=== PATIENT | female | born 1985 | race Caucasian/White ===

== ENCOUNTER 2017-07-10 11:49 | Emergency (ER) | payer OTHER ==
[~2017-07-10] VITALS: Ht 160 cm; Wt 47.2 kg
[2017-07-10 13:01] LABS: APPEARANCE,URINE CLEAR; BILIRUBIN, URINE NEGATIVE (NEGATIVE); COLOR,URINE PALE YELLOW; GLUCOSE, URINE (UA) NEGATIVE (NEGATIVE); KETONES,URINE NEGATIVE (NEGATIVE); LEUKOCYTE ESTERASE ,URINE NEGATIVE (NEGATIVE); NITRITE,URINE NEGATIVE (NEGATIVE); PH,URINE 6 (4.5-8.0); PROTEIN,URINE NEGATIVE (NEGATIVE); UROBILINOGEN,URINE NORMAL MG/DL (0.0-1.0)
[2017-07-10 13:14] LABS: ANION GAP 10 mmol/L (5-15); BLOOD UREA NITROGEN 7 mg/dL (7-18); CALCIUM 9.5 MG/DL (8.5-10.1); CARBON DIOXIDE 24 MMOL/L (21-32); CHLORIDE 104 MMOL/L (98-107); CREATININE 0.6 MG/DL (0.55-1.30); POTASSIUM 4.3 MMOL/L (3.5-5.1); SODIUM 138 MMOL/L (136-145)
[2017-07-10 13:31] LABS: ALANINE AMINOTRANSFERASE 13 U/L (12-78); ALBUMIN 4.3 G/DL (3.4-5.0); ALKALINE PHOSPHATASE 67 U/L (46-116); ASPARTATE AMINO TRANSFERASE 32 U/L (15-37); BILIRUBIN,TOTAL 0.5 MG/DL (0.2-1.0)
[2017-07-10 13:33] LABS: EOSINOPHILS % (AUTO) 0.1 % (0.0-3.0); HEMATOCRIT 37.6 % (37.0-47.0); LYMPHOCYTES % (AUTO) 12.4 % (20.0-45.0); MEAN CORPUSCULAR VOLUME 91 FL (80-99); MONOCYTES % (AUTO) 4.1 % (1.0-10.0); NEUTROPHILS % (AUTO) 82.4 % (45.0-75.0); PLATELET COUNT 218 K/UL (150-450); RED BLOOD COUNT 4.12 M/UL (4.20-5.40); RED CELL DISTRIBUTION WIDTH 10.3 % (11.6-14.8); WHITE BLOOD COUNT 6.5 K/UL (4.8-10.8)
--- NOTE | 2017-07-10 14:31 | Diagnostic Imaging Report ---
EXAM: CT Head Without Intravenous Contrast CLINICAL HISTORY: PAIN TECHNIQUE: Axial computed tomography images of the head/brain without intravenous contrast. CTDI is 70.38 + .15 mGy and DLP is 1304 mGy-cm. One or more of the following dose reduction techniques were used: automated exposure control, adjustment of the mA and/or kV according to patient size, use of iterative reconstruction technique. COMPARISON: No relevant prior studies available. FINDINGS: Brain: No hemorrhage. No edema. Ventricles: No ventriculomegaly. Bones/joints: No acute fracture. Soft tissues: Unremarkable. Sinuses: No acute sinusitis. Mastoid air cells: No mastoid effusion. IMPRESSION: No acute intracranial process.
[2017-07-10] MEDS ORDERED: TEGRETOL200 MG PO (14:52)
[2017-07-10 15:11] VITALS: BP 113/72
--- NOTE | 2017-07-11 07:48 | Emergency Room Report ---
History of Present Illness General Chief Complaint: Headache Source: Patient Present Illness HPI Patient is a 31-year-old female who presented after gradual onset of headache. Patient reports having a recent visit to her doctor for similar symptoms. Patient stated that she had not had previous imaging for her head. Patient reports having a gradual onset headache which was described as a burning sensation to the top of the head and the back of the neck. It having some increased burning sensation both hands. The patient previously been prescribed gabapentin without any improvement. Allergies: Coded Allergies: BISMUTH SUBSALICYLATE (Unverified Allergy, Unknown, 07/10/17) Uncoded Allergies: PEPTO BISMOL (Allergy, Unknown, 07/10/17) Pt acquires rashes. Patient History Past Medical History: see triage record Reviewed Nursing Documentation: PMH: Agreed; PSxH: Agreed Nursing Documentation-PMH Past Medical History: No History, Except For Review of Systems All Other Systems: negative except mentioned in HPI Physical Exam Vital Signs Date Time Temp Pulse Resp B/P (MAP) Pulse Ox O2 Delivery O2 Flow Rate FiO2 07/10/17 11:55 98.5 108 20 113/72 97 Room Air 98.4 Sp02 EP Interpretation: reviewed, normal General Appearance: normal inspection, well appearing, no apparent distress, alert, GCS 15 Head: atraumatic ENT: normal ENT inspection, hearing grossly normal, normal voice Neck: normal inspection, full range of motion, supple, no meningismus, no bony tend Respiratory: normal inspection, lungs clear, normal breath sounds, no respiratory distress, no retraction, no wheezing Cardiovascular #1: normal inspection, regular rate, rhythm, no edema Gastrointestinal: normal inspection, normal bowel sounds, non tender, soft, no guarding, no hernia Genitourinary: no CVA tenderness Musculoskeletal: normal inspection, back normal, normal range of motion Neurologic: normal inspection, alert, oriented x3, responsive, wall and floor tiler III-XII nml as tested, motor strength/tone normal, DTRs symmetric, cerebellar normal, normal gait, speech normal, no pronator Psychiatric: normal inspection, judgement/insight normal, mood/affect normal Reflexes: 2+ bicep (R), 2+ bicep (L); 3+ knee (R), 3+ knee (L) Skin: normal inspection, normal color, no rash Medical Decision Making Diagnostic Impression: Primary Impression: Headache ER Course Patient presented for headache. Differential diagnoses included but was not limited to multiple sclerosis, neuropathy, skull fracture, subarachnoid hemorrhage, meningitis, aneurysm, mass lesion, intracranial hemorrhage. Because of complexity of patient's case laboratory testing and imaging studies were ordered. The laboratory testing was unremarkable test was negative. Patient was given IV magnesium. The CT imaging of the head read by radiology showed no evidence of acute hemorrhage or CVA. The patient was given prescription for medication for headache. The patient is advised outpatient neurology follow-up for further evaluation of abnormal sensation. The patient is advised follow-up with her primary care physician for neurology referral.The patient is advised to follow up with primary care doctor in 1-2 days. Patient is advised to return if any worsening condition or if any changes in status that are concerning. This report is dictated with [email or web address] supervisor engine assembly software which may occasionally lead to discrepancies related to use of this software. Labs Test 07/10/17 12:36 07/10/17 13:00 Urine Color Pale yellow Urine Appearance Clear Urine pH 6 (4.5-8.0) Urine Specific [place] 1.010 (1.005-1.035) Urine Protein Negative (NEGATIVE) Urine Glucose (UA) Negative (NEGATIVE) Urine Ketones Negative (NEGATIVE) Urine Occult Blood 1+ (NEGATIVE) Urine Nitrite Negative (NEGATIVE) Urine Bilirubin Negative (NEGATIVE) Urine Urobilinogen Normal MG/DL (0.0-1.0) Urine Leukocyte Esterase Negative (NEGATIVE) Urine RBC 0-2 /HPF (0 - 2) Urine WBC 0-2 /HPF (0 - 2) Urine Squamous Epithelial Cells Few /LPF (NONE/OCC) Urine Bacteria Few /HPF (NONE) Urine HCG, Qualitative Negative (NEGATIVE) Sodium Level 138 MMOL/L (136-145) Potassium Level 4.3 MMOL/L (3.5-5.1) Chloride Level 104 MMOL/L (98-107) Carbon Dioxide Level 24 MMOL/L (21-32) Anion Gap 10 mmol/L (5-15) Blood Urea Nitrogen 7 mg/dL (7-18) Creatinine 0.6 MG/DL (0.55-1.30) Estimat Glomerular Filtration Rate > 60 mL/min (>60) Glucose Level 98 MG/DL (74-106) Calcium Level 9.5 MG/DL (8.5-10.1) Total Bilirubin 0.5 MG/DL (0.2-1.0) Aspartate Amino Transf (AST/SGOT) 32 U/L (15-37) Alanine Aminotransferase (ALT/SGPT) 13 U/L (12-78) Alkaline Phosphatase 67 U/L (46-116) Total Protein 8.5 G/DL (6.4-8.2) Albumin 4.3 G/DL (3.4-5.0) Globulin 4.2 g/dL Albumin/Globulin Ratio 1.0 (1.0-2.7) Thyroid Stimulating Hormone (TSH) 1.543 uiU/mL (0.358-3.740) Urine Opiates Screen Negative (NEGATIVE) Urine Barbiturates Screen Negative (NEGATIVE) Phencyclidine (PCP) Screen Negative (NEGATIVE) Urine Amphetamines Screen Negative (NEGATIVE) Urine Benzodiazepines Screen Negative (NEGATIVE) Urine Cocaine Screen Negative (NEGATIVE) Urine Marijuana (THC) Screen Negative (NEGATIVE) White Blood Count 6.5 K/UL (4.8-10.8) Red Blood Count 4.12 M/UL (4.20-5.40) Hemoglobin 13.0 G/DL (12.0-16.0) Hematocrit 37.6 % (37.0-47.0) Mean Corpuscular Volume 91 FL (80-99) Mean Corpuscular Hemoglobin 31.5 PG (27.0-31.0) Mean Corpuscular Hemoglobin Concent 34.5 G/DL (32.0-36.0) Red Cell Distribution Width 10.3 % (11.6-14.8) Platelet Count 218 K/UL (150-450) Mean Platelet Volume 7.1 FL (6.5-10.1) Neutrophils (%) (Auto) 82.4 % (45.0-75.0) Lymphocytes (%) (Auto) 12.4 % (20.0-45.0) Monocytes (%) (Auto) 4.1 % (1.0-10.0) Eosinophils (%) (Auto) 0.1 % (0.0-3.0) Basophils (%) (Auto) 1.0 % (0.0-2.0) Erythrocyte Sedimentation Rate 19 MM/HR (0-20) Last Vital Signs Date Time Temp Pulse Resp B/P (MAP) Pulse Ox O2 Delivery O2 Flow Rate FiO2 07/10/17 15:11 98.5 20 113/72 97 Room Air 98.4 07/10/17 11:55 108 Status: improved Disposition: HOME, SELF-CARE Condition: Stable Scripts Carbamazepine (TEGRETOL*) 200 Mg Tablet 200 MG PO Q12HR, #10 TAB 0 Refills Prov: Ronald Servin MD 07/10/17 Referrals: NISA REVELES,REFERRING (PCP) Patient Instructions: General Headache Without Cause Ronald Servin MD Jul 11, 2017 07:48
== END 2017-07-10 15:12 | disposition home or self-care (01) ==
LOC: EMR 12:05
DX: R51 Headache (principal); Z88.8 Allergy status to other drugs, medicaments and biological substances
CPT/HCPCS: 36415; 70450; 80053; 80307; 81003; 81025; 84443; 85025; 85651; 96360; 96374; 99283

== ENCOUNTER 2017-11-12 15:21 | Emergency (ER) | payer OTHER ==
[~2017-11-12] VITALS: Ht 160 cm; Wt 47.2 kg
[~2017-11-12 15:21] MED LIST: TEGRETOL200 MG PO
[2017-11-12 15:46] VITALS: BP 104/74
[2017-11-12] MEDS ORDERED: LORazepam 0.5mg tab ORAL ONE (16:00)
--- NOTE | 2017-11-12 16:01 | Emergency Room Report ---
History of Present Illness General Chief Complaint: General Complaint Source: Patient, Medical Record Present Illness HPI 32 yo female presents to the ED c/o panic attacks and that current medication is making her anxiety worse. Pt. is currently on her second week of taking Buspar. pt. previously had previous trials on zoloft and prozac both of which gave pt. Headaches after increasing to therapeutic levels. pt. denies PSA , previous psychiatric hospitalizations, TBI or traumatic event. Pt. denies hallucinations, delusions, or depression. pt. describes feeling on edge all the time and intermittently having episodes of hyperventilation, palpitations and paresthesias in bilateral hands, arms, feet, and around mouth. Pt denies previous hx of anxiety before initial onset 4 months ago. Pt. has appt. on the of this month with her psych. that was the soonest available appt. Denies CP, SOB, dyspnea, LOC, or presyncope. Pt. denies pain or . Allergies: Coded Allergies: BISMUTH SUBSALICYLATE (Unverified Allergy, Unknown, 11/12/17) Uncoded Allergies: PEPTO BISMOL (Allergy, Unknown, 07/10/17) Pt acquires rashes. Patient History Past Medical History: none Past Surgical History: none Pertinent Family History: none Last Menstrual Period: Oct 24, 2017 Now: No Nursing Documentation-PMH Past Medical History: No History, Except For Review of Systems All Other Systems: negative except mentioned in HPI Physical Exam Vital Signs Date Time Temp Pulse Resp B/P (MAP) Pulse Ox O2 Delivery O2 Flow Rate FiO2 11/12/17 15:31 98.7 89 16 104/74 97 Room Air 98.8 Sp02 EP Interpretation: reviewed, normal General Appearance: no apparent distress, alert, GCS 15, non-toxic Head: normocephalic, atraumatic Eyes: bilateral eye normal inspection, bilateral eye PERRL ENT: hearing grossly normal, normal voice Neck: full range of motion Respiratory: lungs clear, normal breath sounds, no respiratory distress, no accessory muscle use, no wheezing, speaking full sentences Cardiovascular #1: regular rate, rhythm Musculoskeletal: back normal, gait/station normal, normal range of motion, non- tender Neurologic: alert, oriented x3, responsive, motor strength/tone normal, sensory intact, normal gait, speech normal, grossly normal Psychiatric: judgement/insight normal, memory normal, no suicidal/homicidal ideation, no delusions, anxious Skin: normal color, no rash, warm/dry, well hydrated Medical Decision Making PA Attestation Dr. carver is my supervising Physician whom patient management has been discussed with. Diagnostic Impression: Primary Impression: Generalized anxiety disorder with panic attacks ER Course 32 yo female presents to the ED c/o panic attacks and that current medication is making her anxiety worse. Pt. is currently on her second week of taking Buspar. pt. previously had previous trials on zoloft and prozac both of which gave pt. Headaches after increasing to therapeutic levels. pt. denies PSA , previous psychiatric hospitalizations, TBI or traumatic event. Pt. denies hallucinations, delusions, or depression. pt. describes feeling on edge all the time and intermittently having episodes of hyperventilation, palpitations and paresthesias in bilateral hands, arms, feet, and around mouth. Pt denies previous hx of anxiety before initial onset 4 months ago. Pt. has appt. on the of this month with her psych. that was the soonest available appt. Denies CP, SOB, dyspnea, LOC, or presyncope. Pt. denies pain. Denies rashes. Ddx considered but are not limited to anxiety, [place], PE, asthma, thyroid storm, hyperthyroid, EPS, medication SE Vital signs: are WNL, pt. is afebrile H&PE are most consistent with anxiety attack, possible medication SE, as buspar is known to on occasion cause worsening of anxiety symptoms in select population. ORDERS: none required at this time, the diagnosis is clinical ED INTERVENTIONS: - 0.5 mg Ativan d/w pt. Medications and possible SE's. DISCHARGE: At this time pt. is stable for d/c to home. Will provide printed patient care instructions, and any necessary prescriptions. Care plan and follow up instructions have been discussed with the patient prior to discharge. Last Vital Signs Date Time Temp Pulse Resp B/P (MAP) Pulse Ox O2 Delivery O2 Flow Rate FiO2 11/12/17 15:46 98.8 89 16 104/74 97 Room Air 98.8 Status: improved Disposition: HOME, SELF-CARE Condition: Stable Scripts Lorazepam* (ATIVAN*) 0.5 Mg Tablet 0.5 MG ORAL TID PRN for For Anxiety, #5 TAB Prov: Helena Santana 11/12/17 Escitalopram Oxalate (LEXAPRO) 5 Mg Tablet 5 MG ORAL DAILY for 14 Days, #20 TAB may increase to 10mg daily after 1 week of use. Prov: Helena Santana 11/12/17 Patient Instructions: Panic Attacks, [id number] Additional Instructions: Take medications as directed. Follow up with a Primary Care Provider or your psychiatrist in 3-5 days, even if your symptoms have resolved. --Please review list of primary care clinics, if you do not already have a primary care provider Return sooner to ED if new symptoms occur, or current symptoms become worse. - Please note that this Emergency Department Report was dictated using [employer] lamp shades technology software, occasionally this can lead to erroneous entry secondary to interpretation by the dictation equipment. Helena Santana Nov 12, 2017 16:01
[2017-11-12] MEDS ORDERED: LEXAPRO5 MG ORAL (16:08)
[2017-11-12] MEDS ORDERED: ATIVAN0.5 MG ORAL (16:08)
[2017-11-12 16:13] VITALS: BP 104/74
== END 2017-11-12 16:13 | disposition home or self-care (01) ==
LOC: EMR 16:06
DX: F41.1 Generalized anxiety disorder (principal); F41.0 Panic disorder [episodic paroxysmal anxiety]
CPT/HCPCS: 99283

== ENCOUNTER 2017-12-07 14:14 | Emergency (ER) | payer OTHER ==
[~2017-12-07] VITALS: Ht 160 cm; Wt 47.2 kg
[~2017-12-07 14:14] MED LIST changes: +ATIVAN0.5 MG ORAL; +LEXAPRO5 MG ORAL
[2017-12-07 14:37] VITALS: BP 137/68
[2017-12-07] MEDS ORDERED: LORazepam 0.5mg tab ORAL ONE (14:45)
--- NOTE | 2017-12-07 15:02 | Emergency Room Report ---
History of Present Illness General Chief Complaint: General Complaint Source: Patient Present Illness HPI 32-year-old female patient presents ER complaining of anxiety with past 4 days. P Patient reports that she is being seen by psychiatrist, states next appointment is scheduled for tomorrow. Patient denies thoughts of hurting herself or others. Patient denies chest pain, shortness of breath, abdominal pain, fever. Denies recent injury or trauma. Reports took Ativan 0.5mg few hours ago and it did not help symptoms. Denies drinking drugs or alcohol. Denies other acute symptoms. patient denies recent injury or trauma. Reports only taking BuSpar. Reports has follow-up with her therapist next week, states therapist comes her home weekly to discuss symptoms. ports history of anxiety since she was 14 years old. This was seen in ER for similar symptoms. Allergies: Coded Allergies: BISMUTH SUBSALICYLATE (Unverified Allergy, Unknown, 11/12/17) Uncoded Allergies: PEPTO BISMOL (Allergy, Unknown, 07/10/17) Pt acquires rashes. Patient History Past Medical History: see triage record Now: No Reviewed Nursing Documentation: PMH: Agreed; PSxH: Agreed Nursing Documentation-PMH Past Medical History: No History, Except For Review of Systems All Other Systems: negative except mentioned in HPI Physical Exam Vital Signs Date Time Temp Pulse Resp B/P (MAP) Pulse Ox O2 Delivery O2 Flow Rate FiO2 12/07/17 14:16 98.2 109 24 137/68 99 Room Air Sp02 EP Interpretation: reviewed, normal General Appearance: well appearing, no apparent distress, alert, GCS 15, non- toxic Head: normocephalic, atraumatic Eyes: bilateral eye normal inspection, bilateral eye PERRL ENT: hearing grossly normal, normal pharynx, no angioedema, normal voice, uvula midline, moist mucus membranes Neck: full range of motion Respiratory: lungs clear, normal breath sounds, no rhonchi, no respiratory distress, no accessory muscle use, no wheezing, speaking full sentences Cardiovascular #1: regular rate, rhythm, no edema Gastrointestinal: non tender, soft, no mass, non-distended, no guarding, no rebound Genitourinary: no CVA tenderness Musculoskeletal: back normal, digits/nails normal, gait/station normal, normal range of motion, non-tender Neurologic: alert, oriented x3, responsive, motor strength/tone normal, sensory intact Psychiatric: mood/affect normal Skin: no rash Lymphatic: no adenopathy Medical Decision Making PA Attestation Dr. Servin is my supervising Physician whom patient management has been discussed with. Diagnostic Impression: Primary Impression: Anxiety attack ER Course Pt. presents to the ED c/o anxiety. Ddx considered but are not limited to anxiety, depression, drug use, AZ, medication use. Vital signs: are WNL, pt. is afebrile ER COURSE: physical exam benign, lungs clear to auscultation. EKG shows no ST elevations or arrhythmia. Low suspicion for AZ. Provide patient with 0.5 mg Ativan in the ER. denies suicidal or homicidal ideations, patient not on a hold, do not believe patient is a danger to herself or others at this time. will discharge patient to home in care of who will take her home. patient reports symptoms improved while in the ER. provided with contact information for mental health urgent care. advised to call and schedule appointment there for anxiety symptoms if unable to see PCP, therapist or psychiatrist. ER precautions given. does not require refill medication at this time. CURES reviewed. DISCHARGE: At this time pt is stable for d/c to home. Patient is resting comfortably, in no acute distress, nontoxic appearing, talking without difficulty. Patient to take medications as instructed Will provide with patient care instructions and any necessary prescriptions. Care plan and follow-up instructions provided. Patient instructed to follow-up with primary care provider in 3 - 5 days. Patient questions asked and answered. Patient reports understanding and agreement to treatment plan. ER precautions given. Patient instructed to return to ER immediately for any new or worsening of symptoms including but not limited to increasing SOB, persistent fever, chest pain, intractable vomiting. - Please note that this Emergency Department Report was dictated using [employer] operator technology software, occasionally this can lead to erroneous entry secondary to interpretation by the dictation equipment. EKG Diagnostic Results Rate: normal Rhythm: NSR ST Segments: no acute changes ASA given to the pt in ED: No PA Scribe Text Daniel Landry PA-C Rhythm Strip Diag. Results EP Interpretation: yes Rate: 81 Rhythm: NSR, no PVC's, no ectopy PA Scribe Sebas Landry PA-C Last Vital Signs Date Time Temp Pulse Resp B/P (MAP) Pulse Ox O2 Delivery O2 Flow Rate FiO2 12/07/17 14:37 98.2 89 24 137/68 99 Room Air Status: improved Disposition: HOME, SELF-CARE Condition: Stable Patient Instructions: Generalized Anxiety Disorder Additional Instructions: Followup with therapist at scheduled appointment. Discuss treatment and medication. Followup with primary care provider in 3 -5 days. Take medications as directed. Patient questions asked and answered. ER precautions given, patient instructed to return to ER immediately for any new or worsening of symptoms. John Landry Dec 07, 2017 15:02
[2017-12-07 15:39] VITALS: BP 124/68
== END 2017-12-07 16:57 | disposition home or self-care (01) ==
LOC: EMR 15:54
DX: F41.9 Anxiety disorder, unspecified (principal)
CPT/HCPCS: 93005; 99283

== ENCOUNTER 2018-08-15 16:14 | Emergency (ER) | payer OTHER ==
[~2018-08-15] VITALS: Ht 160 cm; Wt 49.9 kg
[2018-08-15] MEDS ORDERED: NKM (16:22)
[2018-08-15 16:25] VITALS: BP 117/76
--- NOTE | 2018-08-15 16:25 | NUR ---
ED Nurse Note: pt walked in c/o left lateral abdomoinal pain started a week ago, pt stated she has loose stool. pt stated she had the same symptom 6 months ago but surpassed. pt complains of 6/10 dull aching pain. will continue to monitor.
--- NOTE | 2018-08-15 16:26 | Emergency Room Report ---
History of Present Illness General Chief Complaint: Abdominal Pain Source: Patient Present Illness HPI The patient presents with 1 week of left lower abdomen pain. Has nausea. She usually moves her bowels once a day but has had multiple stools with she has been loose. The pain is 5-6/10 when she applies pressure to her abdomen or bends over but when she is at rest there is no pain. She tried Mylanta and it up some epigastric burning that she had at the time but did not affect the abdominal pain. She is on her fourth day of her menstrual period at this time. She does not believe she is . She uses condoms for control. Her last Pap smear was 3 years ago. There was no abnormality at that time. She denies dysuria and fevers. She occasionally gets yeast infections the last time was 3 months ago she denies discharge at this time. She states she is under some stress at this time. She does take medicine for anxiety. Patient reports some dyspareunia. She has a history of irritable bowel syndrome. When she gets anxious this acts up. Recently consideration of the trip to [facility] led to increased anxiety. Allergies: Coded Allergies: BISMUTH SUBSALICYLATE (Unverified Allergy, Unknown, 11/12/17) Uncoded Allergies: PEPTO BISMOL (Allergy, Unknown, 07/10/17) Pt acquires rashes. Patient History Past Medical History: see triage record Social History: Denies: smoking, alcohol use, drug use Social History Narrative with 2 sons 5 and 10 Last Menstrual Period: 08/13/18 Reviewed Nursing Documentation: PMH: Agreed; PSxH: Agreed Nursing Documentation-PMH Past Medical History: No History, Except For Review of Systems All Other Systems: negative except mentioned in HPI Physical Exam Vital Signs Date Time Temp Pulse Resp B/P (MAP) Pulse Ox O2 Delivery O2 Flow Rate FiO2 08/15/18 16:18 98.2 89 16 117/76 (90) 99 Room Air Sp02 EP Interpretation: reviewed, normal General Appearance: well appearing, no apparent distress, GCS 15 Head: normocephalic Eyes: bilateral eye normal inspection, bilateral eye PERRL, bilateral eye EOMI ENT: moist mucus membranes Neck: supple Respiratory: lungs clear, normal breath sounds Cardiovascular #1: regular rate, rhythm Cardiovascular #2: 2+ radial (R) Gastrointestinal: normal inspection, normal bowel sounds, no mass, non- distended, no guarding, no rebound, tenderness - Left midabdomen Genitourinary: no CVA tenderness Musculoskeletal: back normal, gait/station normal, normal range of motion Neurologic: alert, oriented x3, grossly normal Psychiatric: mood/affect normal - Slightly anxious Skin: no rash Medical Decision Making Diagnostic Impression: Primary Impression: Abdominal pain Qualified Codes: R10.30 - Lower abdominal pain, unspecified ER Course The patient presents with abdominal pain for 1 week with nausea and loose stools. Differential includes irritable bowel syndrome, UTI, ectopic , gastroenteritis, ovarian cyst amongst others. The patient will be evaluated with labs. She will receive IV hydration, Reglan, Benadryl and Pepcid. A pelvic ultrasound will be obtained. Labs unremarkable. Patient improved with treatment. Ultrasound not obtained. The patient needs to leave as her has to work. Discussed results and treatment plan with patient. Patient stable for outpatient observation and treatment. Laboratory Tests Test 08/15/18 16:29 08/15/18 17:03 Urine Color Yellow Urine Appearance Clear Urine pH 5 (4.5-8.0) Urine Specific [place] 1.020 (1.005-1.035) Urine Protein Negative (NEGATIVE) Urine Glucose (UA) Negative (NEGATIVE) Urine Ketones Negative (NEGATIVE) Urine Blood 2+ (NEGATIVE) H Urine Nitrite Negative (NEGATIVE) Urine Bilirubin Negative (NEGATIVE) Urine Urobilinogen Normal MG/DL (0.0-1.0) Urine Leukocyte Esterase Negative (NEGATIVE) Urine RBC 2-4 /HPF (0 - 2) H Urine WBC 0-2 /HPF (0 - 2) Urine Squamous Epithelial Cells Few /LPF (NONE/OCC) Urine Bacteria Few /HPF (NONE) Urine HCG, Qualitative Negative (NEGATIVE) White Blood Count 5.0 K/UL (4.8-10.8) Red Blood Count 4.11 M/UL (4.20-5.40) L Hemoglobin 12.7 G/DL (12.0-16.0) Hematocrit 37.3 % (37.0-47.0) Mean Corpuscular Volume 91 FL (80-99) Mean Corpuscular Hemoglobin 30.9 PG (27.0-31.0) Mean Corpuscular Hemoglobin Concent 34.0 G/DL (32.0-36.0) Red Cell Distribution Width 10.5 % (11.6-14.8) L Platelet Count 237 K/UL (150-450) Mean Platelet Volume 6.6 FL (6.5-10.1) Neutrophils (%) (Auto) 58.2 % (45.0-75.0) Lymphocytes (%) (Auto) 29.7 % (20.0-45.0) Monocytes (%) (Auto) 7.4 % (1.0-10.0) Eosinophils (%) (Auto) 2.7 % (0.0-3.0) Basophils (%) (Auto) 1.9 % (0.0-2.0) Sodium Level 140 MMOL/L (136-145) Potassium Level 3.8 MMOL/L (3.5-5.1) Chloride Level 104 MMOL/L (98-107) Carbon Dioxide Level 27 MMOL/L (21-32) Anion Gap 9 mmol/L (5-15) Blood Urea Nitrogen 18 mg/dL (7-18) Creatinine 0.7 MG/DL (0.55-1.30) Estimate Glomerular Filtration Rate > 60 mL/min (>60) Glucose Level 93 MG/DL (74-106) Calcium Level 8.8 MG/DL (8.5-10.1) Total Bilirubin 0.2 MG/DL (0.2-1.0) Aspartate Amino Transferase (AST) 15 U/L (15-37) Alanine Aminotransferase (ALT) 11 U/L (12-78) L Alkaline Phosphatase 68 U/L (46-116) Total Protein 7.4 G/DL (6.4-8.2) Albumin 4.2 G/DL (3.4-5.0) Globulin 3.2 g/dL Albumin/Globulin Ratio 1.3 (1.0-2.7) Lipase 165 U/L (73-393) Last Vital Signs Date Time Temp Pulse Resp B/P (MAP) Pulse Ox O2 Delivery O2 Flow Rate FiO2 08/15/18 20:15 98.2 89 16 117/76 99 Room Air Status: improved Disposition: HOME, SELF-CARE Condition: Improved Scripts Famotidine (PEPCID AC) 20 Mg Tablet 20 MG PO DAILY, #20 TAB Prov: Yonas Gross MD 08/15/18 Ondansetron Odt* (ZOFRAN ODT*) 4 Mg Tab.rapdis 4 MG BC EVERY 8 HOURS, #6 TAB 0 Refills Prov: Yonas Gross MD 08/15/18 Acetaminophen (Tylenol) 325 Mg Tablet 650 MG ORAL Q6H PRN for Prn Pain/Headache/Temp > 101, #20 TAB 0 Refills Prov: Yonas Gross MD 08/15/18 Dicyclomine Hcl (BENTYL) 10 Mg/1 Ml Ampul 10 MG IM Q6HR PRN for pain and diarrhea, #10 AMP Prov: Yonas Gross MD 08/15/18 Yonas Gross MD Aug 15, 2018 16:26
--- NOTE | 2018-08-15 16:32 | NUR ---
ED Nurse Note: pt able to give urine sample and sent to lab. ericd on bedside.
[2018-08-15] MEDS ORDERED: Metoclopramide 10mg/2ml Inj IVP ONE (16:45)
[2018-08-15] MEDS ORDERED: DiphenhydrAMINE 50mg/ml Inj IVP ONE (16:45)
[2018-08-15 16:47] LABS: APPEARANCE,URINE CLEAR; BILIRUBIN, URINE NEGATIVE (NEGATIVE); GLUCOSE, URINE (UA) NEGATIVE (NEGATIVE); KETONES,URINE NEGATIVE (NEGATIVE); LEUKOCYTE ESTERASE ,URINE NEGATIVE (NEGATIVE); NITRITE,URINE NEGATIVE (NEGATIVE); PH,URINE 5 (4.5-8.0); PROTEIN,URINE NEGATIVE (NEGATIVE); UROBILINOGEN,URINE NORMAL MG/DL (0.0-1.0)
[2018-08-15 16:51] LABS: COLOR,URINE YELLOW
--- NOTE | 2018-08-15 17:08 | NUR ---
ED Nurse Note: pt medicated as ordered and pt able to tolerate. will continue to monitor.
[2018-08-15 17:25] LABS: BASOPHILS % (AUTO) 1.9 % (0.0-2.0); EOSINOPHILS % (AUTO) 2.7 % (0.0-3.0); HEMATOCRIT 37.3 % (37.0-47.0); HEMOGLOBIN 12.7 G/DL (12.0-16.0); LYMPHOCYTES % (AUTO) 29.7 % (20.0-45.0); MEAN CORPUSCULAR VOLUME 91 FL (80-99); MONOCYTES % (AUTO) 7.4 % (1.0-10.0); NEUTROPHILS % (AUTO) 58.2 % (45.0-75.0); PLATELET COUNT 237 K/UL (150-450); RED BLOOD COUNT 4.11 M/UL (4.20-5.40); RED CELL DISTRIBUTION WIDTH 10.5 % (11.6-14.8)
[2018-08-15 17:34] LABS: ANION GAP 9 mmol/L (5-15); BLOOD UREA NITROGEN 18 mg/dL (7-18); CALCIUM 8.8 MG/DL (8.5-10.1); CARBON DIOXIDE 27 MMOL/L (21-32); CHLORIDE 104 MMOL/L (98-107); CREATININE 0.7 MG/DL (0.55-1.30); POTASSIUM 3.8 MMOL/L (3.5-5.1); SODIUM 140 MMOL/L (136-145)
[2018-08-15 17:38] LABS: ALANINE AMINOTRANSFERASE 11 U/L (12-78); ALBUMIN 4.2 G/DL (3.4-5.0); ALBUMIN/GLOBULIN RATIO 1.3 (1.0-2.7); ALKALINE PHOSPHATASE 68 U/L (46-116); ASPARTATE AMINO TRANSFERASE 15 U/L (15-37); BILIRUBIN,TOTAL 0.2 MG/DL (0.2-1.0)
[2018-08-15] MEDS ORDERED: TYLENOL325 MG ORAL (20:07)
[2018-08-15] MEDS ORDERED: BENTYL10 MG/1 ML IM (20:07)
[2018-08-15] MEDS ORDERED: PEPCID AC20 M2 PO (20:07)
[2018-08-15] MEDS ORDERED: ONDANSETRON ODT4 MG BC (20:07)
[2018-08-15 20:15] VITALS: BP 117/76
== END 2018-08-15 20:15 | disposition home or self-care (01) ==
LOC: EMR 16:40
DX: R10.30 Lower abdominal pain, unspecified (principal); R11.0 Nausea; Z88.8 Allergy status to other drugs, medicaments and biological substances
CPT/HCPCS: 36415; 80053; 81003; 81025; 83690; 85025; 96361; 96374; 96375; 99284; J1200; J2765; S0028

== ENCOUNTER 2018-10-14 08:59 | Emergency (ER) | payer OTHER ==
[~2018-10-14] VITALS: Ht 160 cm; Wt 52.2 kg
[~2018-10-14 08:59] MED LIST changes: +BENTYL10 MG/1 ML IM; +NKM; +ONDANSETRON ODT4 MG BC; +PEPCID AC20 M2 PO; +TYLENOL325 MG ORAL
[2018-10-14 09:05] VITALS: BP 117/80
--- NOTE | 2018-10-14 09:05 | NUR ---
ED Nurse Note: Patient walked into ED c/o anterior medial chest pain that she reports it being sharp. rates her pain a 6/10 pain non-radiating. patient is alert and oriented x4, reports of no cardiac history, states that she used to take meds for her anxiety but is currently of it. states that the chest pain has been intermittent for 1 day with her feeling symptoms lasting minutes to her finding relief
--- NOTE | 2018-10-14 09:35 | Emergency Room Report ---
History of Present Illness General Chief Complaint: General Complaint Source: Patient Present Illness HPI Patient presents with complaints of left mid chest pain Reports that she had done a workout routine called eda yesterday and at nighttime trying to sleep she was awakened with sharp pain left midsternal area The discomfort again happened this morning and patient presents to the ER Denies any pleurisy denies any shortness of breath patient does not have any symptoms currently And it has improved denies any radiation towards the back denies any focal weakness Denies any recent travel or leg swelling Allergies: Coded Allergies: BISMUTH SUBSALICYLATE (Unverified Allergy, Unknown, 11/12/17) Uncoded Allergies: PEPTO BISMOL (Allergy, Unknown, 07/10/17) Pt acquires rashes. Patient History Past Medical History: see triage record Last Menstrual Period: 10/11/2018 Now: No Reviewed Nursing Documentation: PMH: Agreed; PSxH: Agreed Nursing Documentation-PMH Past Medical History: No History, Except For Hx Cardiac Problems: No Hx Hypertension: No Hx Pacemaker: No Hx Asthma: No Hx COPD: No Hx Diabetes: No Hx Cancer: No Hx Gastrointestinal Problems: No Hx Dialysis: No History Of Psychiatric Problem: Yes - Anxiety Hx Neurological Problems: No Hx Cerebrovascular Accident: No Hx Seizures: No Review of Systems All Other Systems: negative except mentioned in HPI Physical Exam Vital Signs Date Time Temp Pulse Resp B/P (MAP) Pulse Ox O2 Delivery O2 Flow Rate FiO2 10/14/18 09:02 98.4 94 16 117/80 (92) 99 Room Air Sp02 EP Interpretation: reviewed, normal General Appearance: well appearing, no apparent distress Head: normocephalic, atraumatic Eyes: bilateral eye PERRL, bilateral eye EOMI ENT: hearing grossly normal, normal pharynx, TMs + canals normal, uvula midline Neck: full range of motion, supple, no meningismus, no bony tend Respiratory: lungs clear, normal breath sounds, no rhonchi, no respiratory distress, no retraction, no accessory muscle use Cardiovascular #1: normal peripheral pulses, regular rate, rhythm, no edema, no gallop, no JVD, no murmur Gastrointestinal: normal bowel sounds, non tender, soft, no mass, no organomegaly, non-distended, no guarding, no hernia, no pulsatile mass, no rebound Genitourinary: no CVA tenderness Musculoskeletal: normal inspection Neurologic: oriented x3, responsive, 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, motor strength/ tone normal, sensory intact Psychiatric: mood/affect normal Skin: no rash Lymphatic: normal inspection, no adenopathy Medical Decision Making Diagnostic Impression: Primary Impression: Chest pain ER Course Patient is a fairly complex patient with multiple differential to consideration including but not limited to cardiac cardiopulmonary and vascular emergencies Patient's EKG does not show any obvious ST elevations No obvious arrhythmias Patient's description of the pain does not sound cardiac in nature and patient has no other risk factors for cardiac etiology patient has had fairly extensive blood work recently and this was not repeated Patient has tried several different medications with her psychiatrist over the past 12 months with minimal improvement she also has a follow-up today with her psychologist Patient was encouraged to follow-up and keep her appointment today At this time no other evidence of acute emergent pathology and patient remains hemodynamically stable for close outpatient follow-up EKG Diagnostic Results Rate: normal Rhythm: NSR ST Segments: other - Nonspecific ST changes Rhythm Strip Diag. Results EP Interpretation: yes Rate: 66 Rhythm: NSR, no PVC's, no ectopy Last Vital Signs Date Time Temp Pulse Resp B/P (MAP) Pulse Ox O2 Delivery O2 Flow Rate FiO2 10/14/18 09:05 98.4 88 16 117/80 99 Room Air Status: unchanged Disposition: HOME, SELF-CARE Condition: Stable Referrals: NON PHYSICIAN (PCP) Additional Instructions: Patient is provided with the discharge instructions notified to follow up with primary doctor in the next 2-3 days otherwise return to the er with any worsening symptoms. Please note that this report is being documented using [employer] technology. This can lead to erroneous entry secondary to incorrect interpretation by the dictating instrument. Sofi Waddell DO Oct 14, 2018 09:35
--- NOTE | 2018-10-14 09:50 | NUR ---
ER DISCHARGE NOTE: Patient is cleared to be discharged per ERMD, pt is aox4, on room air, with stable vital signs. pt was given dc and prescription instructions, pt was able to verbalize understanding, pt id band removed without complications. pt is able to ambulate with steady gait. pt took all belongings.
[2018-10-14 09:55] VITALS: BP 118/79
--- NOTE | 2018-10-16 15:22 | Cardiology Report ---
APPROVED REPORT EKG Measurement Heart [id number] Normal sinus rhythm Rightward axis Nonspecific ST abnormality Abnormal ECG
== END 2018-10-14 09:50 | disposition home or self-care (01) ==
LOC: EMR 09:15
DX: R07.9 Chest pain, unspecified (principal); F41.9 Anxiety disorder, unspecified; Z88.8 Allergy status to other drugs, medicaments and biological substances
CPT/HCPCS: 93005; 99282